=== PATIENT | female | born 1965 | race Two or more races ===

== ENCOUNTER 2023-03-12 08:44 | Outpatient (REF) | payer MEDICAID, SELFPAY ==
--- NOTE | ~2023-03-12 | XR_ITS ---
EXAMINATION: XR HIP, LEFT CLINICAL INFORMATION: Left hip pain and sciatica. COMPARISON: None available. TECHNIQUE: AP and frog-leg lateral views of the left hip. FINDINGS: No fracture. Alignment is anatomic. Hip joint space is maintained. Soft tissues are unremarkable. XR/XR hip LT min 2V IMPRESSION: Normal left hip.
--- NOTE | ~2023-03-12 | XR_ITS ---
EXAMINATION: XR HIP, LEFT CLINICAL INFORMATION: Left hip pain and sciatica. COMPARISON: None available. TECHNIQUE: AP and frog-leg lateral views of the left hip. FINDINGS: No fracture. Alignment is anatomic. Hip joint space is maintained. Soft tissues are unremarkable. XR/XR lumbar spine 2-3V IMPRESSION: Normal left hip.
--- NOTE | ~2023-03-12 | XR_ITS ---
EXAMINATION: XR CHEST CLINICAL INFORMATION: Left-sided chest wall pain. Question costochondritis COMPARISON: None available. TECHNIQUE: 2 views of the chest were obtained. FINDINGS: No significant abnormality is noted involving the heart, lungs, mediastinum, bony thorax or soft tissues. XR/XR chest 2V IMPRESSION: Unremarkable examination.
== END 2023-03-12 08:45 | disposition home or self-care (01) ==
LOC: HO.HHCX 08:44
PROVIDERS: Visit Provider Family Medicine
DX: M25.552 Pain in left hip (principal); R07.89 Other chest pain; G89.29 Other chronic pain; M54.50 Low back pain, unspecified
CPT/HCPCS: 71046; 72100; 73502

== ENCOUNTER 2023-03-23 16:10 | Outpatient (REF) | payer MEDICAID, SELFPAY ==
[2023-03-23 17:57] LABS: Alanine Aminotransferase 10 U/L (0-31); Albumin Level 4.5 g/dL (3.5-5.0); Alkaline Phosphatase 72 U/L (39-117); Anion Gap 13 (12-20); Aspartate Amino Transferase 18 U/L (5-31); Bilirubin Total 0.5 mg/dL (0.0-1.0); Blood Urea Nitrogen 14 mg/dL (9-16); Calcium 9.8 mg/dL (8.4-10.2); Carbon Dioxide 26 mmol/L (22-29); Chloride 106 mmol/L (96-108); Cholesterol 219 mg/dL (<200); Estimated Glomerular Filt Rate > 60; Glucose Fasting 80 mg/dL (60-99); HDL Cholesterol 52 mg/dL (>40); LDL Cholesterol Calculated 148 mg/dL (<100); Potassium 4.2 mmol/L (3.3-5.1); Sodium 141 mmol/L (135-145); Total Protein 7.4 g/dL (6.5-8.0); Triglycerides 95 mg/dL (<150)
[2023-03-23 18:14] LABS: TSH reflex Free T4 2.33 uIU/mL (0.32-4.0)
[2023-03-26 20:13] LABS: HIV RNA PCR Qn Copies Not Detected Copies/mL; HIV RNA PCR Qn Log Copies Not Detected Log cps/mL
== END 2023-03-23 16:11 | disposition home or self-care (01) ==
LOC: HO.CHCLDS 16:10
PROVIDERS: Visit Provider Internal Medicine
DX: Z11.4 Encounter for screening for human immunodeficiency virus [HIV] (principal); M54.42 Lumbago with sciatica, left side; G89.29 Other chronic pain
CPT/HCPCS: 36415; 80053; 80061; 83036; 84443; 85025; 86803; 87536; 87900

== ENCOUNTER 2023-10-26 10:57 | Outpatient (REF) | payer MEDICAID, SELFPAY ==
--- NOTE | ~2023-10-26 | US_ITS ---
EXAMINATION: US VENOUS ULTRASOUND WITH DOPPLER LOWER EXTREMITY, LEFT CLINICAL INFORMATION: Left leg swelling evaluate for DVT COMPARISON: None available. TECHNIQUE: Ultrasound of the deep veins is performed from the hip to the calf with compression sonography and color and pulse Doppler assessment. Spectral analysis with color-flow imaging is performed. FINDINGS: There is normal venous compression and respiratory variation and augmented flow. The visualized common femoral vein, superficial femoral vein, profunda femoral vein, popliteal vein, and the trifurcation region shows no evidence of deep venous thrombosis. There is no significant popliteal fossa cyst. If the patient's symptoms persist, followup ultrasound in 5 days 7 days might be of value to exclude proximal propagation from a non-visualized calf vein. US/US venous duplex LE LT IMPRESSION: No DVT demonstrated in the left lower extremity.
== END 2023-10-26 10:58 | disposition home or self-care (01) ==
LOC: HO.US 10:57
PROVIDERS: PCP Internal Medicine; Visit Provider Internal Medicine
DX: I83.12 Varicose veins of left lower extremity with inflammation (principal); M79.89 Other specified soft tissue disorders; L30.9 Dermatitis, unspecified
CPT/HCPCS: 93971

== ENCOUNTER 2023-11-15 09:04 | Outpatient (REF) | payer MEDICAID, SELFPAY ==
[2023-11-15 15:15] LABS: Rheumatoid Factor < 13.0 IU/mL (<15.0)
[2023-11-15 15:22] LABS: C Reactive Protein 0.32 mg/dL (< or = 0.50)
[2023-11-15 15:40] LABS: Erythrocyte Sedimentation Rate 5 MM/HR (0-20)
[2023-11-17 20:48] LABS: Cyclic Citrullinated Peptide <16 UNITS
[2023-11-21 14:13] LABS: DNAds, Crithidia Antibody Negative (Negative)
== END 2023-11-15 09:05 | disposition home or self-care (01) ==
LOC: HO.CHCLDS 09:04
PROVIDERS: Visit Provider Internal Medicine
DX: M25.541 Pain in joints of right hand (principal); M25.542 Pain in joints of left hand
CPT/HCPCS: 36415; 85652; 86140; 86200; 86255; 86431

== ENCOUNTER 2023-12-07 08:34 | Outpatient (AMB) | payer MEDICAID, SELFPAY ==
--- NOTE | 2023-12-07 08:38 | MHC.OFFVIS ---
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 Pt has worn compression socks and states they dont help. 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 Complaints include pain over varicosities, swelling of lower extremities, cramping, fatigue, and heaviness of the lower extremities. It has been affecting there daily activities including walking. It is noted more so in left leg. Of note she does have an irritated patch of skin over the left medial thigh. Patient denies any previous venous surgery or injections. Patient denies any history of DVT/ PE. Patient denies any history of phlebitis. Trial of compression includes - [id number] They now present for vascular evaluation regarding their varicose veins. [facility] Social History (Updated 12/07/23 @ 08:54 by MONY Waggoner) Patient Tobacco Use Status: Never used Tobacco Review of Systems Const Reports as per HPI ENT Reports no additional complaints Card Denies chest pain, Denies chest pain at rest and Denies chest pain with activity Resp Denies chest congestion and Denies cough GI Reports no additional complaints Musc Details: pain over varicosities, aching of lower extremities, swelling, cramping, heaviness and tiredness, itching Denies abnormal gait Skin/Breast Reports pruritus and Denies wounds Neuro Reports no additional complaints and Denies abnormal gait Psych Denies no additional complaints Physical Exam Vital Signs: BMI result Body Mass Index 27.0 Const General: cooperative, healthy appearing and comfortable Orientation/consciousness: oriented to person, oriented to place and oriented to time Neck Carotids: no bruits Chest Chest palpation & inspection: normal inspection of the chest and normal palpation of entire chest wall Resp Effort & Inspection: normal respiratory effort and able to speak in complete sentences Cardio Rate: regular rate Heart sounds: S1 normal heart sound present and S2 normal heart sound present Peripheral pulses: Peripheral pulses 2+ throughout GI Inspection: Yes normal to inspection Skin Other: +2 edema, psoriatic patch left medial thigh CEAP Classification C4 - skin color changes Ep - Etiology Primary As - superficial veins P - reflux General skin exam: dry skin Neuro General: oriented to person, oriented to place and oriented to time Extrem Right lower extremity: full ROM, normal capillary refill and edema Left lower extremity: full ROM, normal capillary refill and edema Psych Mental Status: mental status grossly normal Assessment & Plan Assessment & Plan (1) Varicose veins of left lower extremity with inflammation: Code(s): I83.12 - Varicose veins of left lower extremity with inflammation Category: Medical Plan: In short, the patient has evidence of venous insufficiency. I have discussed the pathophysiology with the patient. In addition I have provided informational material regarding venous disease to the patient. We have discussed conservative measures including compression, elevation, and exercise. I have also provided a handout regarding appropriate use of compression stockings and where to purchase good compression stockings as well. I have taken the liberty of ordering venous insufficiency testing with the patient. They will follow up with me after testing. The patient had an opportunity to ask questions regarding the treatment plan. All questions were answered. Imaging studies, laboratory studies and physical exam results were discussed and reviewed in detail. No major barriers to understanding were identified. The patient expressed understanding and agreement with the above treatment plan. The patient is aware they should contact our office by phone for worsening of the current condition or the appearance of new symptoms. Thank you for allowing me to participate in the vascular care of this patient. If you have any questions or concerns regarding the treatment for the above condition please do not hesitate to contact me. The office telephone contact is [phone]. This note is constructed using voice recognition software. While every effort has been made to ensure accuracy, medical superintendent errors may have been included. Thank you for allowing me to participate in the care of your patient. Yours sincerely, Mark Pandey MD, FACS, R.P.V.I. (2) Psoriasis: Code(s): L40.9 - Psoriasis, unspecified Category: Medical Plan: She appears to have a psoriatic patch over the left medial knee. I have recommended [id number] hydrocortisone cream for that. We will see if that makes any improvement. Orders: Orders US venous duplex LE BI 1 Week I83.12 - Varicose veins of left lower extremity with inflammation Coding Level of Care Code New Pt Level 4 (65573) Diagnoses Varicose veins of left lower extremity with inflammation I83.12 Psoriasis L40.9
[2023-12-07 08:49] VITALS: BMI 27.0
== END 2023-12-07 09:12 | disposition home or self-care (01) ==
PROVIDERS: PCP Internal Medicine; Referring Provider Internal Medicine; Visit Provider Surgery Vascular Surgery
DX: I83.12 Varicose veins of left lower extremity with inflammation (principal); L40.9 Psoriasis, unspecified
CPT/HCPCS: 99203

== ENCOUNTER → 2023-12-07 08:34 | Outpatient (BNVA) | payer MEDICAID, SELFPAY | PROVIDERS: PCP Internal Medicine; Visit Provider Surgery Vascular Surgery | DX: I83.12 Varicose veins of left lower extremity with inflammation (principal); L40.9 Psoriasis, unspecified | CPT/HCPCS: 99202 ==

== ENCOUNTER 2023-12-10 08:14 | Outpatient (REF) | payer MEDICAID, SELFPAY ==
--- NOTE | ~2023-12-10 | US_ITS ---
EXAMINATION: US LOWER EXTREMITY VENOUS (REFLUX EXAM), BILATERAL CLINICAL INFORMATION: Varicose veins of left lower extremity with inflammation COMPARISON: Venous Doppler study of the left lower extremity dated 10/26/2023 TECHNIQUE: Color flow triplex imaging and compression Doppler was performed to evaluate both the deep and the superficial systems bilaterally. To evaluate the superficial system, the examination was performed in the upright position. Color-flow Doppler ultrasound and compression ultrasound were utilized. In addition, maneuvers were utilized to demonstrate reflux. FINDINGS: 1. DEEP VENOUS ULTRASOUND OF THE RIGHT LOWER EXTREMITY: Common Femoral Vein: Compressible, normal respiratory variation and augmented flow. Femoral Vein: Compressible, normal color flow and augmentation. Popliteal Vein: Compressible, normal augmentation. Deep Reflux: There is no evidence of reflux in the deep system in either the common femoral vein, superficial femoral or the popliteal vein. There is no evidence of a Wong's cyst. 2. SUPERFICIAL ULTRASOUND WITH DOPPLER OF RIGHT LOWER EXTREMITY: GREAT SAPHENOUS VEIN: Saphenofemoral Junction: 0.8 cm; Reflux: 0 ms Proximal Thigh: 0.2 cm; Reflux: 0 ms Mid Thigh: 0.3 cm; Reflux: 0 ms Distal Thigh: 0.3 cm; Reflux: 0 ms At Knee: 0.3 cm; Reflux: 0 ms Proximal Calf: 0.3 cm; Reflux: 0 ms Mid Calf: 0.2 cm; Reflux: 0 ms Distal Calf: 0.3 cm; Reflux: 0 ms SMALL SAPHENOUS VEIN: Saphenopopliteal Junction: 0.2 cm; Reflux: 0 ms Proximal: 0.2 cm; Reflux: 0 ms Distal: 0.1 cm; Reflux: 0 ms PERFORATORS: Location: Mid thigh Size: 0.2; Reflux: 0 Location: Proximal calf Size: 0.2; Reflux: 0 VARICOSITIES: Location: None visualized. 3. DEEP VENOUS ULTRASOUND OF THE LEFT LOWER EXTREMITY: Common Femoral Vein: Compressible, normal respiratory variation and augmented flow. Femoral Vein: Compressible, normal color flow and augmentation. Popliteal Vein: Compressible, normal augmentation. Deep Reflux: Reflux in the left popliteal vein measures 1896 ms. There is no evidence of reflux in the left common femoral vein or superficial femoral vein. There is no evidence of a Wong's cyst. 4. SUPERFICIAL ULTRASOUND WITH DOPPLER OF LEFT LOWER EXTREMITY: GREAT SAPHENOUS VEIN: Saphenofemoral Junction: 0.8 cm; Reflux: 1584 ms Proximal Thigh: 0.5 cm; Reflux: 916 ms Mid Thigh: 0.5 cm; Reflux: 2876 ms Distal Thigh: 0.3 cm; Reflux: 0 ms At Knee: 0.5 cm; Reflux: 0 ms Proximal Calf: 0.2 cm; Reflux: 0 ms Mid Calf: 0.3 cm; Reflux: 0 ms Distal Calf: 0.3 cm; Reflux: 0 ms SMALL SAPHENOUS VEIN: Saphenopopliteal Junction: 0.3 cm; Reflux: 1244 ms Proximal: 0.4 cm; Reflux: 1260 ms Distal: 0.2 cm; Reflux: 0 ms PERFORATORS: Location: Mid thigh Size: 0.3; Reflux: 0 Location: Proximal calf Size: 0.2; Reflux: 0 VARICOSITIES: Location: SSV proximal Size: 0.6; Reflux: 2612 Location: SSV mid Size: 0.4; Reflux: 3188 Location: Proximal thigh Size: 0.5; Reflux: 2920 Location: Mid thigh Size: 0.3; Reflux: 0 Location: Mid PTV Size: 0.6; Reflux: 0 US/US venous insuf bilat IMPRESSION: 1. No evidence of deep venous thrombosis in the bilateral lower extremities. 2. No evidence of reflux in the deep system of the right lower extremity. 3. Reflux in the left popliteal vein measures 1896 ms. No reflux in the remaining deep system of the left lower extremity. 4. No significant venous insufficiency of the right lower extremity, with competent right great saphenous vein and small saphenous vein. There are two perforators present without reflux and no varicose veins are visualized. 5. The left great saphenous vein is incompetent from the level of the saphenofemoral junction to the mid thigh with significant reflux up to 2876 ms. 6. The left small saphenous vein is incompetent from the level of the saphenofemoral popliteal junction to the mid calf with reflux measuring up to 1260 ms. 7. Multiple varicose veins in the left lower extremity measuring up to 6 mm in diameter and with significant reflux measuring up to 3188 ms. 8. Given the reflux in the left popliteal vein and overall asymmetric involvement of venous insufficiency of the left lower extremity, this raises suspicion for central venous compression, particularly of the left common iliac vein. Consider MRI of the pelvis to assess the central veins, in particular to assess for May Thurner anatomy.
== END 2023-12-10 08:15 | disposition home or self-care (01) ==
LOC: HO.US 08:14
PROVIDERS: PCP Internal Medicine; Visit Provider Surgery Vascular Surgery
DX: I83.12 Varicose veins of left lower extremity with inflammation (principal)
CPT/HCPCS: 93970

== ENCOUNTER 2024-02-10 08:30 | Outpatient (AMB) | payer MEDICAID, SELFPAY ==
[2024-02-10 08:51] VITALS: BP 122/70; BMI 27.0
--- NOTE | 2024-02-10 08:51 | A.OFFVIS_ITS ---
Vital Signs 02/10/24 08:51 Height 5 ft 3.5 in Weight 155 lb BMI 27.0 BP 122/70 Blood Pressure Location Lt brachial Position Sitting Intake Visit Reasons: follow up s/p 12/10/23 Intake Note: Abelardo is a 58 year old female who presents to the office today for a follow up s/p 12/10/23. Pt states she is still having pain in her legs and states her left leg is more painful than her right. Allergies No Known Allergies Allergy (Verified 02/10/24 08:53) [facility] follow up s/p 12/10/23: Details: Very pleasant 58-year-old female presents for follow-up regarding venous insufficiency. She has had a history of left lower extremity swelling and discomfort and significant varicosities of that left leg. She now presents for follow-up with venous insufficiency testing. [facility] Social History (Updated 12/07/23 @ 08:54 by MONY Waggoner) Patient Tobacco Use Status: Never used Tobacco Review of Systems Const Reports as per HPI ENT Reports no additional complaints Card Denies chest pain, Denies chest pain at rest and Denies chest pain with activity Resp Denies chest congestion and Denies cough GI Reports no additional complaints Musc Details: pain over varicosities, aching of lower extremities, swelling, cramping, heaviness and tiredness, itching Denies abnormal gait Skin/Breast Reports pruritus and Denies wounds Neuro Reports no additional complaints and Denies abnormal gait Psych Denies no additional complaints Physical Exam Vital Signs: Last Vital Signs BP 122/70 02/10/24 08:51 BMI result Body Mass Index 27.0 Const General: cooperative, healthy appearing and comfortable Orientation/consciousness: oriented to person, oriented to place and oriented to time Neck Carotids: no bruits Chest Chest palpation & inspection: normal inspection of the chest and normal palpation of entire chest wall Resp Effort & Inspection: normal respiratory effort and able to speak in complete sentences Cardio Rate: regular rate Heart sounds: S1 normal heart sound present and S2 normal heart sound present Peripheral pulses: Peripheral pulses 2+ throughout GI Inspection: Yes normal to inspection Skin Other: +2 edema, large rope-like varicosities greater than 4 mm left thigh and calf CEAP Classification C4 - skin color changes Ep - Etiology Primary As - superficial veins P - reflux General skin exam: dry skin Neuro General: oriented to person, oriented to place and oriented to time Extrem Right lower extremity: full ROM, normal capillary refill and edema Left lower extremity: full ROM, normal capillary refill and edema Psych Mental Status: mental status grossly normal Results Reviewed Results Reviewed: Brief summary of venous insufficiency testing is as follows: right great saphenous vein: negative right small saphenous vein: negative right accessory vein: none present left great saphenous vein: Positive left small saphenous vein: Positive left accessory vein: none present Please note there is no evidence of any venous aneurysms or significant tortuosity Assessment & Plan Assessment & Plan (1) Varicose veins of left lower extremity with inflammation: Code(s): I83.12 - Varicose veins of left lower extremity with inflammation Category: Medical Plan: This patient has varicose veins with inflammation. They continue to be a source of discomfort for the patient. The patient has tried conservative treatment with compression, leg elevation and exercise program for over 3 months time. They have been compliant with all treatment. This has provided minimal relief for the patient. I do not anticipate this course of treatment will alter the underlying etiology. The patient has been scheduled for lower extremity venous treatment inclusive of --- left great saphenous vein Cyanoacralate ablation. Risks, benefits, and complications of this procedure has been discussed in detail with the patient including but not limited to bleeding, infection, and the development of a DVT. The patient has demonstrated a clear understanding and has consented. We will schedule the patient as soon as possible. Thank you for allowing us to participate in this patient's care. If there are any questions or concerns please do not hesitate to contact us. Coding Level of Care Code Est Pt Level 4 (38124) Diagnoses Varicose veins of left lower extremity with inflammation I83.12
== END 2024-02-10 09:38 | disposition home or self-care (01) ==
PROVIDERS: PCP Internal Medicine; Visit Provider Surgery Vascular Surgery
DX: I83.12 Varicose veins of left lower extremity with inflammation (principal)
CPT/HCPCS: 99214

== ENCOUNTER → 2024-02-10 08:30 | Outpatient (BNVA) | payer MEDICAID, SELFPAY | PROVIDERS: PCP Internal Medicine; Visit Provider Surgery Vascular Surgery | DX: I83.12 Varicose veins of left lower extremity with inflammation (principal) | CPT/HCPCS: 99212 ==

== ENCOUNTER 2024-03-10 10:08 | Outpatient (AMB) | payer MEDICAID, SELFPAY ==
--- NOTE | 2024-03-10 10:10 | MHC.OFFVIS ---
Intake Visit Reasons: Left GSV Venaseal Accompanied by: Self / Same As Patient Allergies No Known Allergies Allergy (Verified 03/10/24 10:11) [facility] Social History Patient Tobacco Use Status: Never used Tobacco Office Procedures Vascular Office Procedure Details Details: Diagnosis: Left Leg varicose veins with inflammation Procedure: Endovenous Ablation of the left Great Saphenous Vein with VenaSeal Closure System Anesthesia: Local infiltration 5 cc, Estimated Blood Loss: min Specimen: none Duplex ultrasound was used to map out the insufficient saphenous vein, and access was determined and marked on the overlying skin. The depth and diameter of the vein(s) to be treated was documented. The patient was placed supine on the procedure table and the leg was prepped and draped using sterile technique. Ultasound guidance was again used to localize the access site. 1% lidocaine was injected as a local anesthetic in the subcutaneous tissues at the target location in the GSV in the lower leg. Using ultrasound guidance, access was gained at this location with the 19 gauge thin walled access needle and followed by introduction of a short guidewire, location confirmed with ultrasound. A small, 3 mm incision was made at the access site to allow for introduction and placement of the 7 Fr x7cm introducer/dilator. The dilator and guidewire were removed. The 0.035 guidewire from the VenaSeal kit was then introduced and positioned at the saphenofemoral junction using ultrasound guidance. The 80 cm 7 Fr introducer sheath/dilator was positioned 5cm from the saphenofemoral junction. The guidewire and dilator were removed, and the remaining sheath was flushed with sterile saline, with the syringe remaining in place prior to the next steps. The cyanoacrylate adhesive was precisely primed into the 5 F delivery catheter and this catheter/syringe combination was attached within the dispenser gun. This assembly was introduced through the 7F sheath and positioned 5 cm caudal of the saphenofemoral junction under ultrasound guidance. The steps from the IFU were followed for dispensing amounts, locations and compression times, 2 aliquots proximally with 3 minutes of compression, and 1 aliquot every 3 cm distally with 30 sec of compression along the course of the vessel. Following the last injection and compression sequence, the catheter and introducer sheath were pulled out from the access site. Hemostasis was achieved with manual compression and an adhesive bandage was applied to the incision. Ultrasound confirmed complete coaptation and closure of the treated segments of the GSV, and the absence of any DVT at the saphenofemoral junction. Treatment time was approximately 5 minutes and the vein length treated was 22 cm. The drapes were removed and the patient cleaned and prepared for discharge. Post op ultrasound check is scheduled for 48-72 hours and the patient was given written post-op instructions. 47808 - Endoven Ther Chem Adhes 1st All charges added?: Procedure code (CPT) selection complete Assessment & Plan Assessment & Plan (1) Varicose veins of left lower extremity with inflammation: Comment: 03/10/2024 - left great saphenous vein Cyanoacralate ablation Code(s): I83.12 - Varicose veins of left lower extremity with inflammation Category: Medical Plan: See above Coding Level of Care Code Procedure Only Diagnoses Varicose veins of left lower extremity with inflammation I83.12 CPT Codes Details - Vascular 3: 82929 - Endoven Ther Chem Adhes 1st ([id number])
== END 2024-03-10 10:57 | disposition home or self-care (01) ==
LOC: HO.HVS 10:08
PROVIDERS: PCP Internal Medicine; Visit Provider Surgery Vascular Surgery
DX: I83.12 Varicose veins of left lower extremity with inflammation (principal)
CPT/HCPCS: 36482

== ENCOUNTER → 2024-03-10 10:08 | Outpatient (BNVA) | payer MEDICAID, SELFPAY | PROVIDERS: PCP Internal Medicine; Visit Provider Surgery Vascular Surgery | DX: I83.12 Varicose veins of left lower extremity with inflammation (principal) | CPT/HCPCS: 36482; J2003 ==

== ENCOUNTER 2024-03-13 11:03 | Outpatient (REF) | payer MEDICAID, SELFPAY ==
--- NOTE | ~2024-03-13 | US_ITS ---
EXAMINATION: TRIPLEX SCANNING OF LEFT LOWER EXTREMITY; SUPERFICIAL ULTRASOUND WITH DOPPLER OF LEFT LOWER EXTREMITY CLINICAL INFORMATION: Status post Venaseal of the left great saphenous vein Originally performed on 03/10/2024. COMPARISON: 12/10/2023. TECHNIQUE: Color flow triplex imaging and compression Doppler were performed as well as superficial ultrasound with Doppler. FINDINGS: LEFT LOWER EXTREMITY DEEP VENOUS SYSTEM: Respiratory variation, normal compression and augmented flow are noted throughout the lower extremity. The visualized common femoral vein, femoral vein, profunda femoral vein, popliteal vein and the calf veins show no evidence of deep venous thrombosis. There is no evidence of Wong's cyst. SUPERFICIAL VENOUS SYSTEM: The great saphenous vein is occluded from the access site to 0.4 cm before the saphenofemoral junction. There is no extension of thrombus into the deep system. US/US venous duplex LE IMPRESSION: 1. No evidence of DVT. 2. Excellent appearance status post ablation of the left great saphenous vein. Electronically signed by: Khari Chambers MD 03/15/2024 02:09 PM EDT
== END 2024-03-13 11:04 | disposition home or self-care (01) ==
LOC: HO.US 11:03
PROVIDERS: PCP Internal Medicine; Visit Provider Surgery Vascular Surgery
DX: M79.605 Pain in left leg (principal)
CPT/HCPCS: 93971

== ENCOUNTER 2024-03-23 09:03 | Outpatient (AMB) | payer MEDICAID, SELFPAY ==
[2024-03-23 09:23] VITALS: BMI 27.0
--- NOTE | 2024-03-23 09:23 | MHC.OFFVIS ---
Vital Signs 03/23/24 09:23 Height 5 ft 3.5 in Weight 155 lb BMI 27.0 Intake Visit Reasons: 2 week follow up Left GSV Venaseal 03/10/24 Intake Note: 2 week follow up Left GSV Venaseal 03/10/24. Pt states she is feeling better. 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 No postprocedure issues. Reports overall swelling and discomfort have significantly decreased. Now presents for postprocedure follow-up. Of note postprocedure ultrasound was negative for DVT. [facility] Surgical History (Updated 03/23/24 @ 09:28 by MONY Waggoner) Status post endovenous radiofrequency ablation of saphenous vein (~02/2024) Social History Patient Tobacco Use Status: Never used Tobacco Review of Systems Const All systems reviewed & are unremarkable except as noted in HPI and below Reports no additional complaints ENT Reports Normal hearing present Card Denies chest pain, Denies chest pain at rest, Denies chest pain with activity and Denies pedal edema Resp Denies cough GI Denies abdominal pain Musc Denies abnormal gait, Denies muscle cramps and Denies radiating pain into limb Skin/Breast Denies skin ulcer and Denies wounds Neuro Reports Normal hearing present and Denies abnormal gait Psych Reports no additional complaints Physical Exam Vital Signs: BMI result Body Mass Index 27.0 Const General: cooperative, healthy appearing and comfortable Orientation/consciousness: oriented to person, oriented to place and oriented to time HEENT Head: Yes normal to inspection Neck Neck: Yes normal visual inspection Carotids: no bruits Chest Chest palpation & inspection: normal inspection of the chest Resp Effort & Inspection: normal respiratory effort and able to speak in complete sentences Auscultation: clear to auscultation bilaterally, no crackles, no rales, no rhonchi and no wheezes Cardio Rate: regular rate Rhythm: regular rhythm Heart sounds: S1 normal heart sound present and S2 normal heart sound present Bruits: no carotid bruits Peripheral pulses: Peripheral pulses 2+ throughout GI Inspection: Yes normal to inspection Skin Wounds: no wounds Hair: normal Neuro General: oriented to person, oriented to place and oriented to time Cranial nerves: Yes CN's II-XII intact bilaterally and Yes Normal hearing present Cognition (Neuro): normal cognition Motor exam (neuro): 5/5 motor strength present throughout Extrem Other: venous exam: No significant superficial varicosities or spider telangiectasias, minimal edema General: No clubbing, No cyanosis and No edema Psych Appearance: grossly normal Mental Status: mental status grossly normal Speech and movement: Normal speech and movement present Results Reviewed Results Reviewed: Brief summary of venous insufficiency testing is as follows: right great saphenous vein: negative right small saphenous vein: negative right accessory vein: none present left great saphenous vein: Ablated left small saphenous vein: Positive left accessory vein: none present Please note there is no evidence of any venous aneurysms or significant tortuosity Assessment & Plan Assessment & Plan (1) Varicose veins of left lower extremity with inflammation: Comment: 03/10/2024 - left great saphenous vein Cyanoacralate ablation Code(s): I83.12 - Varicose veins of left lower extremity with inflammation Category: Medical Plan: In short patient has done well status post left great saphenous vein ablation. She does have a refluxing small saphenous vein but at the current time would like to manage this conservatively. We did discuss routine conservative measures including compression elevation and exercise. She will follow up with us on an as-needed basis. Should she come back happy to ablate the small saphenous vein for her. Thank you for allowing us to assist in her care. If there are any questions or concerns please do not hesitate to contact us Coding Level of Care Code Est Pt Level 4 (92513) Diagnoses Varicose veins of left lower extremity with inflammation I83.12
== END 2024-03-23 09:57 | disposition home or self-care (01) ==
PROVIDERS: PCP Internal Medicine; Visit Provider Surgery Vascular Surgery
DX: I83.12 Varicose veins of left lower extremity with inflammation (principal)
CPT/HCPCS: 99214

== ENCOUNTER → 2024-03-23 09:03 | Outpatient (BNVA) | payer MEDICAID, SELFPAY | PROVIDERS: PCP Internal Medicine; Visit Provider Surgery Vascular Surgery | DX: I83.12 Varicose veins of left lower extremity with inflammation (principal); Z98.890 Other specified postprocedural states | CPT/HCPCS: 99212 ==

== ENCOUNTER 2024-06-29 14:17 | Outpatient (REF) | payer MEDICAID, SELFPAY ==
--- NOTE | ~2024-06-29 | XR_ITS ---
EXAMINATION: XR CHEST CLINICAL INFORMATION: cough for 7 days COMPARISON: X-ray dated March 12, 2023 TECHNIQUE: 2 views of the chest were obtained. FINDINGS: No consolidation pleural fissure pneumothorax. Cardiomediastinal silhouette is normal in size. Osseous structures are intact. Spondylosis in the upper lumbar spine. Schmorl node in the superior endplate of L1. XR/XR chest 2V IMPRESSION: No acute airspace disease Electronically signed by: Antony Quinones MD 06/29/2024 02:31 PM EST
== END 2024-06-29 14:18 | disposition home or self-care (01) ==
LOC: HO.HHCX 14:17
PROVIDERS: Visit Provider Family Medicine
DX: J06.9 Acute upper respiratory infection, unspecified (principal)
CPT/HCPCS: 71046

== ENCOUNTER → 2024-06-29 14:17 | Outpatient (BNV) | payer MEDICAID, SELFPAY | PROVIDERS: Visit Provider Radiology Diagnostic Radiology | DX: R05.9 Cough, unspecified (principal) | CPT/HCPCS: 71046 ==